=== PATIENT | male | born 1995 | race Two or more races ===

== ENCOUNTER 2023-02-18 13:32 | Emergency (ER) | payer OTHER ==
[~2023-02-18] VITALS: Ht 182.9 cm; Wt 72.6 kg
[2023-02-18 13:43] VITALS: BP 137/75; PULSE 67; RESP 20; TEMP 97.1; O2SAT 98
[2023-02-18] MEDS ORDERED: KETOROLAC 30 MG/ML VIAL IM ONE (14:00)
[2023-02-18] MEDS ORDERED: NAPR-1704 PO (14:12)
--- NOTE | 2023-02-18 14:56 | NUR ---
Patient discharged with v/s stable. Written and verbal after care instructions FOR [facility] given and explained. Patient alert, oriented and verbalized understanding of instructions. Ambulatory USING CRUTCHES . All questions addressed prior to discharge. ID band removed. Patient advised to follow up with PMD. Rx of NAPROXEN given. Opportunity to ask questions provided and answered.
--- NOTE | 2023-02-18 14:56 | NUR ---
Note sonia in ED - 02/18/23 at 1704 by PHSEP Patient discharged with v/s stable. Written and verbal after care instructions FOR [facility] given and explained. Patient alert, oriented and verbalized understanding of instructions. Ambulatory with steady gait. All questions addressed prior to discharge. ID band removed. Patient advised to follow up with PMD. Rx of NAPROXEN given. Opportunity to ask questions provided and answered.
--- NOTE | 2023-02-18 15:00 | NUR ---
The patient's care was reviewed and supervised by VIVEK JAIMES RN.
== END 2023-02-18 14:56 | disposition home or self-care (01) ==
LOC: MED 13:32
DX: S83.095D Other dislocation of left patella, subsequent encounter (principal); M25.562 Pain in left knee; Z79.899 Other long term (current) drug therapy; W22.8XXD Striking against or struck by other objects, subsequent encounter
CPT/HCPCS: 29505; 96372; 99283; J1885